=== PATIENT | female | born 1975 | race Caucasian/White ===

== ENCOUNTER 2020-11-02 11:36 | Outpatient (CLI) | payer SELFPAY ==
[2020-11-02 12:14] LABS: SARS-CoV-2 Ag Negative (Negative)
[2020-11-03 20:38] LABS: SARS-CoV-2 RNA PCR Negative
== END 2020-11-02 11:37 | disposition home or self-care (01) ==
LOC: CHSLAB 11:37
PROVIDERS: PCP Internal Medicine; Visit Provider Internal Medicine
DX: Z20.822 Contact with and (suspected) exposure to COVID-19 (principal)
CPT/HCPCS: 87426; C9803; U0003; U0005

== ENCOUNTER 2021-06-22 18:50 | Observation (INO) | payer BC, SELFPAY ==
--- NOTE | ~2021-06-22 | CT_ITS ---
EXAMINATION: CT abdomen pelvis w con DATE: 06/22/2021 20:24 INDICATION: Epigastric abdominal pain. Nausea. TECHNIQUE: Computed tomography (CT) of the abdomen and pelvis was performed with 100 mL Omnipaque 350 intravenous contrast. Automated exposure control and iterative reconstruction technique were employe d. The dose-length product was 215.90 mGy-cm. COMPARISON: None. FINDINGS: The visualized portions of the lung bases demonstrate mild atelectasis. No pleural effusion . The heart size is normal. No pericardial effusion. There is a 9 mm mass in left hepatic lobe that i s too small to characterize, most likely benign. There are cysts in the liver measuring up to 12 mm. The gallbladder, spleen, pancreas, adrenal glands are normal. There are cysts in the kidneys measurin g up to 9 mm on the right. There is a 17 mm hyperdense mass in the uterus, likely a fibroid. There ar e no dilated loops of bowel. The appendix is not visualized. There are no pathologically enlarged lym ph nodes. There is no free intraperitoneal fluid. The bones are unremarkable. IMPRESSION: 1. Uterine fibroid. Reviewed, dictated and finalized at location A. IMPRESSION: 1. Uterine fibroid.
--- NOTE | ~2021-06-22 | XR_ITS ---
EXAMINATION: XR chest 2V DATE: 06/22/2021 20:12 INDICATION: Shortness of breath. TECHNIQUE: Frontal and lateral views of the chest were obtained. COMPARISON: Chest 2 views 10/28/2017 FINDINGS: The chest demonstrates clear lungs without pneumonia, pleural effusion, or pneumothorax. Th e heart size is normal. IMPRESSION: 1. No acute cardiopulmonary disease. Reviewed, dictated and finalized at location A.
--- NOTE | ~2021-06-22 | US_ITS ---
EXAMINATION: US abdomen limited EXAM DATE: 06/23/2021 07:53 INDICATION: Abdominal pain. Abnormal CT scan. TECHNIQUE: Multiple grayscale and Doppler images of the abdomen right upper quadrant were obtained (b y a technologist who performed the scan) and subsequently reviewed. There is no prior study for eric ramos. FINDINGS: The pancreatic head and body are normal in appearance. The pancreatic tail is not visualized. The l iver has normal echogenicity and contour. There is a 1.3 cm left liver lobe cyst. There is no evide nce of intrahepatic biliary duct dilation. Portal venous flow was seen in the hepatopedal, normal di rection and has normal Doppler waveform. No right-sided hydronephrosis. Common bile duct measures 7 mm, which is normal. The gallbladder wall is normal in thickness, with ex pected amount of distention. No sonographic evidence of pericholecystic fluid. There is no cholelit hiases. Technologist performing exam reports patient did not demonstrate sonographic Reynoso's sign. Please note that this sign is less reliable in patients who have received pain medication. IMPRESSION: 1. Unremarkable gallbladder. Reviewed, dictated and finalized at location D.
[2021-06-22 19:07] VITALS: BP 116/77; PULSE 87; RESP 20; TEMP 36.8; O2SAT 96
--- NOTE | 2021-06-22 19:22 | ECG_ITS ---
Measurements Intervals Elliott Rate: 65 P: 48 MD: 153 QRS: -44 QRSD: 98 T: 43 QT: 421 QTc: 440 Interpretive Statements SINUS RHYTHM LEFT AXIS DEVIATION INCOMPLETE RIGHT BUNDLE BRANCH BLOCK BORDERLINE T WAVE ABNORMALITY- ANTERIOR LEADS BORDERLINE ECG Electronically Signed On 06-23-2021 7:45:28 CDT by Adi Turner D.O.
[2021-06-22] MEDS: SODIUM CHLORIDE 0.9% IV 1,000 ML 999 ML IV CONT (19:33)
[2021-06-22] MEDS: MORPHINE SULFATE (*CRX) 4 MG/ML INJ IV PUSH (19:33)
[2021-06-22] MEDS: ONDANSETRON INJ 4 MG/2 ML VIAL IV PUSH (19:33)
[2021-06-22 19:40] LABS: Basophils Absolute Auto 0.06 K/mm3 (0.00-0.10); Basophils Percent Auto 0.4 % (0.0-1.0); Eosinophils Absolute Auto 0.02 K/mm3 (0.02-0.50); Eosinophils Percent Auto 0.1 % (1.0-6.0); Hematocrit 44.1 % (35.0-49.0); Hemoglobin 15.3 g/dL (12.0-15.0); Immature Granulocyte Absolute 0.09 K/mm3 (0.00-0.00); Immature Granulocyte Percent A 0.6 % (0.0-0.0); Lymphocytes Absolute Auto 1.46 K/mm3 (1.10-4.50); Lymphocytes Percent Auto 9.4 % (18.0-42.0); Mean Corpuscular HGB Conc 34.7 g/dL (32.0-36.0); Mean Corpuscular Hemoglobin 31.7 pg (27.0-31.0); Mean Corpuscular Volume 91.5 fL (78.0-102.0); Mean Platelet Volume 9.1 fl (9.2-11.8); Monocytes Absolute Auto 0.88 K/mm3 (0.10-0.90); Monocytes Percent Auto 5.7 % (2.0-11.0); Neutrophils Absolute Auto 13.1 K/mm3 (1.7-7.2); Neutrophils Percent Auto 83.8 % (50.0-70.0); Platelet Count Result 326 K/mm3 (150-420); Red Blood Count 4.82 M/mm3 (4.20-5.40); Red Cell Distribution Width 11.5 % (11.6-14.4); White Blood Count 15.6 K/mm3 (4.8-10.8)
[2021-06-22 19:46] LABS: Pregnancy On Board Control Positive; Urine Pregnancy Test Negative
[2021-06-22 19:55] LABS: Partial Thromboplastin Time 26.4 SEC (23.90-30.70); Prothrombin Time 10.9 Seconds (9.50-12.10)
[2021-06-22 20:00] LABS: Alanine Aminotransferase 254 U/L (14-59); Albumin Level 3.7 g/dL (3.4-5.0); Alkaline Phosphatase 99 U/L (46-116); Anion Gap 12 mmol/L (8-16); Aspartate Amino Transferase 500 U/L (15-37); Bilirubin,Total 1.1 mg/dL (0.00-1.00); Blood Urea Nitrogen 18 mg/dL (7-18); Calcium 8.5 mg/dL (8.5-10.1); Carbon Dioxide 24 mmol/L (21-32); Chloride 104 mmol/L (98-108); Estimated CRCL calculation 72 ml/min; Estimated Glomerular Filt Rate > 60; Glucose 94 mg/dL (70-99); Lactic Acid Reflex 0.7 mmol/L (0.4-2.0); Lipase 169 U/L (73-393); Osmolality Calculated 291 mOsm/kg (285-295); Potassium 3.7 mmol/L (3.5-5.1); Sodium 140 mmol/L (136-145); Total Protein 6.6 g/dL (6.4-8.2)
[2021-06-22 20:05] LABS: CRP < 0.2 mg/dL (0.0-0.9); Troponin I < 4.0 ng/L (0.00-60.4)
--- NOTE | 2021-06-22 20:47 | ED.ABDPAIN ---
HPI - Abdominal Pain General Chief Complaint: Abdominal Pain Stated Complaint: abd pain, back pain Source: patient and family Mode of arrival: ambulatory History of Present Illness HPI narrative: this is a 46-year-old female that presents with some abdominal pain that she describes is a is an aching burning that radiates into her back in the epigastric area with tenderness in her epigastric area specially after she she eats, there is some nausea with no vomiting there is currently no fever or chills no shortness of breath no chest pain no chest pressure no fever or chills her vital signs are stable. The patient currently takes no medication. The patient had similar episode and went to the emergency department but did not follow through and left stating that she felt better at that time. Patient denies smoking or alcohol history. MD elicited complaint: abdominal pain Onset (ago): hour(s) Pain Consistency: intermittent Location: epigastric Severity: severe Pain scale (0-10): 8 Quality: aching Radiation: epigastric Related Data Home Medications Medication Instructions Recorded Confirmed No Home Medications 06/22/21 06/22/21 Allergies Allergy/AdvReac Type Severity Reaction Status Date / Time No Known Allergies Allergy Unverified 06/22/21 19:17 Review of Systems Review of Systems: All systems reviewed & are unremarkable except as noted in HPI and below PMFSH Past Medical History Medical History Abdominal pain Family History Family History Father Diabetes mellitus Hypertension Mother Family history of malignant neoplasm of cervix Other Family history of malignant neoplasm of breast Social History Social History Smoking status: Former smoker Smoking end date: 09/09/13 Alcohol intake: current Exam Const: General: no acute distress Orientation/consciousness: patient oriented x3 HENMT: Head: normal to inspection Eyes: Conjunctivae: conjunctivae normal Pupils: Equal, round and reactive pupils present Neck: Neck: normal visual inspection, no lymphadenopathy and no meningeal signs Chest: Chest palpation & inspection: normal inspection of the chest Resp: Effort & Inspection: normal respiratory effort Auscultation: clear to auscultation bilaterally Cardio: Rate: regular rate Rhythm: regular rhythm GI: GI Palp: Yes Soft to palpation and Yes Tenderness to palpation present (GI) ( epigastric area) Urinary Catheter: Urinary Catheter: patent and draining Back/Spine/Pelvis: Back: no CVA tenderness Skin: General skin exam: normal color Rashes: no rashes Neuro: General: patient oriented x3 and moves all extremities Extrem: General: normal to inspection Psych: Mental Status: mental status grossly normal Course Course Emergency Course: CT scan labs reviewed with patient IV fluids given, morphine 4mg IV along with Zofran given patient states that her abdominal pain has subsided. condition guarded Impression abdominal pain Disposition admitted to acute hospital start on Vital Signs Vital signs: Vital Signs Temperature 36.8 C 06/22/21 19:07 Pulse Rate 87 06/22/21 19:07 Respiratory Rate 20 06/22/21 19:07 Blood Pressure 116/77 06/22/21 19:07 Pulse Oximetry 96 06/22/21 19:07 Temperature 36.8 C 06/22/21 19:07 Pulse Rate 87 06/22/21 19:07 Respiratory Rate 20 06/22/21 19:07 Blood Pressure 116/77 06/22/21 19:07 Pulse Oximetry 96 06/22/21 19:07 MDM - Abdominal Pain Lab Data Result diagrams: 06/22/21 19:36 06/22/21 19:36 Labs: Lab Results 06/22/21 06/22/21 06/22/21 Range/Units 19:36 19:36 19:36 WBC 15.6 H (4.8-10.8) K/mm3 RBC 4.82 (4.20-5.40) M/mm3 Hgb 15.3 H (12.0-15.0) g/dL Hct 44.1 (35.0-49.0) % MCV 91.5 (78.0-102.0)
[2021-06-22 20:54] LABS: Add Urine Microscopic? YES; Appearance Urine Clear (Clear); Bilirubin Urine 1+ (Negative); Blood Urine Negative (Negative); Color Urine Yellow (Yellow); Glucose Urine UA Negative (Negative); Ketones Urine 3+ (Negative); Leukocyte Esterase Ur Trace (Negative); Nitrate Urine Negative (Negative); Protein Urine Negative (Negative)
[2021-06-22 20:59] VITALS: BP 119/67; PULSE 71; RESP 20; O2SAT 98
[2021-06-22 20:59] LABS: Bacteria Urine 1+ /hpf; Mucus Urine Rare /lpf; RBC Urine 0-2 /hpf (0-2); Squamous Epithelial Cell Urine Few /hpf (Few)
[2021-06-22 21:25] VITALS: BP 113/62; PULSE 67; RESP 18; TEMP 36.2; O2SAT 98
--- NOTE | 2021-06-22 21:28 | ADMGEN ---
This patient, Catina Marvin, was admitted to 2nd Floor Room 226-2. Patient/family oriented to hospital policies and general routines including ID bracelet, bed and alarms, visiting hours, pain management, procedures, bathroom and other care routines, personal items, smoking policy, room service/diet, and visiting hours. Information on how to activate the Rapid Response Team has been discussed. Patient/Family are encouraged to report perceived risks to care and to ask questions if they do not understand what they are told or what they should do.
[2021-06-22 21:32] VITALS: BMI 20.3
[2021-06-22] MEDS: SODIUM CHLORIDE 0.9% IV 1,000 ML 100 ML IV CONT (21:57)
[2021-06-22] MEDS: MORPHINE SULFATE (*CRX) 2 MG/ML INJ IV PUSH (22:16)
--- NOTE | 2021-06-22 22:45 | PC.NURSE ---
Patient reported pain was aching, gnawing pain in RUQ radiating to her back. Pain relieved with morphine.
--- NOTE | 2021-06-22 23:37 | PC.NURSE ---
Patient resting. Pain 0 on FLACC schedule.
[2021-06-23] VITALS: BP 94/54; PULSE 60; RESP 16; TEMP 36.2; O2SAT 94
[2021-06-23] MEDS: MORPHINE SULFATE (*CRX) 2 MG/ML INJ IV PUSH ×2 (05:25→09:20)
[2021-06-23 05:35] LABS: Basophils Absolute Auto 0.05 K/mm3 (0.00-0.10); Basophils Percent Auto 0.7 % (0.0-1.0); Eosinophils Absolute Auto 0.08 K/mm3 (0.02-0.50); Eosinophils Percent Auto 1.1 % (1.0-6.0); Hematocrit 40.6 % (35.0-49.0); Hemoglobin 13.6 g/dL (12.0-15.0); Immature Granulocyte Absolute 0.03 K/mm3 (0.00-0.00); Immature Granulocyte Percent A 0.4 % (0.0-0.0); Lymphocytes Absolute Auto 1.74 K/mm3 (1.10-4.50); Lymphocytes Percent Auto 24.8 % (18.0-42.0); Mean Corpuscular HGB Conc 33.5 g/dL (32.0-36.0); Mean Corpuscular Volume 92.5 fL (78.0-102.0); Mean Platelet Volume 9.6 fl (9.2-11.8); Monocytes Absolute Auto 0.63 K/mm3 (0.10-0.90); Neutrophils Absolute Auto 4.5 K/mm3 (1.7-7.2); Platelet Count Result 286 K/mm3 (150-420); Red Blood Count 4.39 M/mm3 (4.20-5.40); Red Cell Distribution Width 11.7 % (11.6-14.4)
[2021-06-23 05:53] LABS: Alanine Aminotransferase 305 U/L (14-59); Albumin Level 2.9 g/dL (3.4-5.0); Alkaline Phosphatase 87 U/L (46-116); Anion Gap 9 mmol/L (8-16); Aspartate Amino Transferase 282 U/L (15-37); Bilirubin,Total 0.5 mg/dL (0.00-1.00); Blood Urea Nitrogen 12 mg/dL (7-18); Calcium 7.8 mg/dL (8.5-10.1); Carbon Dioxide 25 mmol/L (21-32); Chloride 109 mmol/L (98-108); Estimated CRCL calculation 78 ml/min; Estimated Glomerular Filt Rate > 60; Glucose 77 mg/dL (70-99); Magnesium 2.1 mg/dL (1.8-2.4); Osmolality Calculated 294 mOsm/kg (285-295); Potassium 3.6 mmol/L (3.5-5.1); Sodium 143 mmol/L (136-145); Total Protein 5.5 g/dL (6.4-8.2)
[2021-06-23 07:50] LABS: GGT 135 U/L (5-55); Lipase 136 U/L (73-393)
[2021-06-23 08:00] VITALS: BP 102/67; PULSE 69; RESP 16; TEMP 36.7; O2SAT 95
[2021-06-23] MEDS: ENOXAPARIN 40 MG/0.4 ML SYRINGE SUB-Q (09:19)
[2021-06-23] MEDS: SODIUM CHLORIDE 0.9% IV 1,000 ML 100 ML IV CONT ×2 (09:19→20:09)
[2021-06-23] MEDS: PANTOPRAZOLE SODIUM IV 40 MG VIAL IV PUSH (09:20)
--- NOTE | 2021-06-23 10:10 | PC.NURSE ---
Pt resting comfortably no complaints at this time.
--- NOTE | 2021-06-23 11:00 | PC.NURSE ---
Pt sleeping at this time.
--- NOTE | 2021-06-23 11:58 | PC.NURSE ---
Pt has been up to the shower. States she had a burst of energy and cleaned up.
[2021-06-23 12:00] VITALS: BP 120/60; PULSE 72; RESP 14; TEMP 36.6; O2SAT 98
--- NOTE | 2021-06-23 12:38 | PM.IMHP ---
H&P: HPI History of Present Illness Date/Time: 06/23/21 12:38 Catina Marvin is a 46 your old female who comes to the hospital with increasing abdominal pain that started about a month ago. Pt states she has been taking 4 tabs of 200 mg tabs Ibuprofen 2 times a day and sometimes will substitute one dose with 2 tabs of OTC Aleve. She admits that she will take two 500 mg tabs of Tylenol maybe 1 time a week. She states she takes these medications for her neck pain. She also takes OTC Zegerid which is Omeprazole for her stomach pains which does help. Her pain is sharp, at times she feels bloated, has sensation her food will not finish going down. She admits to having vomited about 1 month ago and noticed the vomit was a dark color but does not recall bright red or coffee ground appearance. She also states that at times her stool will be a bit darker but not often. She admits she has taken Pepto-Bismol a few times but unable to correlate taking this with her darker stools. She denies bright red stools. She states her pain has gotten better since she has been here. She describes her neck pain as a neck headache . She denies any numbness or tingling in her hands or arms. She was able to tolerate oatmeal and toast this AM. Chief Complaint: Abdominal pain Review of Systems Review of Systems: All systems reviewed & are unremarkable except as noted in HPI and below PMFSH Past Medical History Medical History Abdominal pain Dysmenorrhea Irregular menses Menorrhagia with irregular cycle Preoperative exam for gynecologic surgery Family History Family History Father Diabetes mellitus Hypertension Mother Family history of malignant neoplasm of cervix Other Family history of malignant neoplasm of breast Social History Social History Smoking status: Former smoker Tobacco type: cigarettes Second hand tobacco smoke exposure: Yes Smoking end date: 09/09/13 Alcohol intake: current Drinks per week: 8 Substance use: never Spiritual care concerns: No Meds Home Medications and Allergies Home Medications Medication Instructions Recorded Confirmed Type No Home Medications 06/22/21 06/22/21 History Allergies Allergy/AdvReac Type Severity Reaction Status Date / Time No Known Allergies Allergy Unverified 06/22/21 19:17 Vital Signs Vital Signs - 24 hr 06/22/21 19:07 06/22/21 20:59 06/22/21 21:25 Temperature 98.3 F 97.2 F L Pulse Rate 87 71 67 Respiratory Rate 20 20 18 Blood Pressure 116/77 119/67 113/62 Pulse Oximetry 96 98 98 06/23/21 00:00 06/23/21 08:00 06/23/21 12:00 Temperature 97.2 F L 98.0 F 97.8 F Pulse Rate 60 69 72 Respiratory Rate 16 16 14 Blood Pressure 94/54 L 102/67 120/60 Pulse Oximetry 94 95 98 Exam Const: General: cooperative, healthy appearing, comfortable, no acute distress, well developed, alert, awake and Physically active Nutritional Appearance: thin Resp: Effort & Inspection: normal respiratory effort Auscultation: clear to auscultation bilaterally Cardio: Rate: regular rate Heart sounds: S1 normal heart sound present and S2 normal heart sound present GI: GI Palp: Yes Soft to palpation, Yes Tenderness to palpation present (GI) (Upper abdomen, mostly epigastric) and Yes No hepatosplenomegaly present Auscultation: Hypoactive bowel sounds present Back/Spine/Pelvis: Cervical Spine: normal cervical lordosis and cervical ROM normal Skin: General skin exam: normal color and dry skin Neuro: General: oriented to person, oriented to place and oriented to time Cranial nerves: Yes CN's II-XII intact bilaterally (grossly intact) Cognition (Neuro): normal cognition Speech: normal speech Motor exam (neuro): 5/5 motor strength present throughout Extrem: General: full ROM and no pedal edema Psych: Appearan
[2021-06-23] MEDS: BISACODYL 5 MG TABLET EC PO (13:15)
[2021-06-23] MEDS: SUMAtriptan SUCCINATE 6 MG/0.5 ML VIAL SUB-Q (14:22)
[2021-06-23] MEDS: ORPHENADRINE CITRATE 100 MG TABLET.ER PO (14:22)
--- NOTE | 2021-06-23 14:40 | PC.NURSE ---
Pt CO severe headache. RN made [employer] BAIT PICKER aware. Medications ordered and given to pt.
[2021-06-23 15:34] VITALS: BP 110/66; PULSE 62; RESP 20; TEMP 36.7; O2SAT 97
--- NOTE | 2021-06-23 15:43 | PC.NURSE ---
Round completed Resting abed side railes up to upper bed. V/S WNL. Respirations even/ nonlabored. Alert/oriented x4.
--- NOTE | 2021-06-23 17:53 | PC.NURSE ---
Completed round lying abed IV infusing without difficulty. Unable to collect stool for occult blood at this time;reminder to Catina to make staff aware upon defecation. Good verbal response no noted signs of distress, respirations even nonlabored.Call light in reach.
[2021-06-23 20:00] VITALS: BP 113/72; PULSE 60; RESP 18; TEMP 36.4; O2SAT 96
[2021-06-23] MEDS: ONDANSETRON INJ 4 MG/2 ML VIAL IV PUSH (22:20)
[2021-06-24] VITALS: BP 109/69; PULSE 55; RESP 18; TEMP 36; O2SAT 96
--- NOTE | 2021-06-24 03:58 | PC.NURSE ---
Patient complaining of headache and requesting pain med. Dr Zuniga notified with Tylenol order received.
[2021-06-24 04:00] VITALS: BP 116/76; PULSE 58; RESP 20; TEMP 36.3; O2SAT 95
[2021-06-24] MEDS: ACETAMINOPHEN 500 MG TABLET 1000 MG PO (04:00)
[2021-06-24 05:17] LABS: Hematocrit 39.1 % (35.0-49.0); Mean Corpuscular HGB Conc 33.2 g/dL (32.0-36.0); Mean Corpuscular Hemoglobin 31.4 pg (27.0-31.0); Mean Corpuscular Volume 94.4 fL (78.0-102.0); Mean Platelet Volume 9.7 fl (9.2-11.8); Platelet Count Result 255 K/mm3 (150-420); Red Blood Count 4.14 M/mm3 (4.20-5.40); Red Cell Distribution Width 11.7 % (11.6-14.4); White Blood Count 5.4 K/mm3 (4.8-10.8)
[2021-06-24 05:28] LABS: Anion Gap 6 mmol/L (8-16); Blood Urea Nitrogen 8 mg/dL (7-18); Carbon Dioxide 26 mmol/L (21-32); Chloride 107 mmol/L (98-108); Estimated CRCL calculation 75 ml/min; Estimated Glomerular Filt Rate > 60; Glucose 86 mg/dL (70-99); Osmolality Calculated 285 mOsm/kg (285-295); Potassium 3.7 mmol/L (3.5-5.1); Sodium 139 mmol/L (136-145)
[2021-06-24] MEDS: SODIUM CHLORIDE 0.9% IV 1,000 ML 100 ML IV CONT (06:12)
[2021-06-24 08:00] VITALS: BP 122/72; PULSE 75; RESP 16; TEMP 36.4; O2SAT 96
[2021-06-24] MEDS: PANTOPRAZOLE SODIUM IV 40 MG VIAL IV PUSH (09:18)
[2021-06-24] MEDS: ENOXAPARIN 40 MG/0.4 ML SYRINGE SUB-Q (09:18)
--- NOTE | 2021-06-24 10:49 | PM.DS ---
DS: Admitting Diagnosis Discharge Date 06/24/2021 <Benjamin Jang APN-Christian - Last Filed: 06/24/21 11:19> Admitting Diagnosis Gastritis, Nausea <ERIBERTO Mera - Last Filed: 06/24/21 11:19> DS: Discharge Diagnosis Discharge Diagnosis (1) Gastritis: Code(s): K29.70 - Gastritis, unspecified, without bleeding <ERIBERTO Mera - Last Filed: 06/24/21 11:19> Status: Acute <ERIBERTO Mera - Last Filed: 06/24/21 11:19> Assessment and Plan: DDx: PUD, Reflux, Cholecystitis, Pancreatitis, etc. Pain management with Morphine, Tums, and Zofran for nausea, advised Pt NOT to continue taking Ibuprofen every day as well as other NSAIDs. Pt was NPO then was able to tolerate breakfast of oatmeal and toast. Abd/Pel CT with Contrast: FINDINGS: The visualized portions of the lung bases demonstrate mild atelectasis. No pleural effusion. The heart size is normal. No pericardial effusion. There is a 9 mm mass in left hepatic lobe that is too small to characterize, most likely benign. There are cysts in the liver measuring up to 12 mm. The gallbladder, spleen, pancreas, adrenal glands are normal. There are cysts in the kidneys measuring up to 9 mm on the right. There is a 17 mm hyperdense mass in the uterus, likely a fibroid. There are no dilated loops of bowel. The appendix is not visualized. There are no pathologically enlarged lymph nodes. There is no free intraperitoneal fluid. The bones are unremarkable.IMPRESSION: 1. Uterine fibroid. Abd Ultrasound: FINDINGS: The pancreatic head and body are normal in appearance. The pancreatic tail is not visualized. The liver has normal echogenicity and contour. There is a 1.3 cm left liver lobe cyst. There is no evidence of intrahepatic biliary duct dilation. Portal venous flow was seen in the hepatopedal, normal direction and has normal Doppler waveform. No right-sided hydronephrosis. Common bile duct measures 7 mm, which is normal. The gallbladder wall is normal in thickness, with expected amount of distention. No sonographic evidence of pericholecystic fluid. There is no cholelithiases. Technologist performing exam reports patient did not demonstrate sonographic Reynoso's sign. Please note that this sign is less reliable in patients who have received pain medication. IMPRESSION: 1. Unremarkable gallbladder. Pt will need close follow up with her PCP and an EGD as an outpatient. Obtaining stool for blood 06/24/2021 Spoke with Pt about cutting out coffee, stopping NSAID use, starting on PO PPI <ERIBERTO Mera - Last Filed: 06/24/21 11:19> (2) Migraine headache without aura: Code(s): G43.009 - Migraine without aura, not intractable, without status migrainosus <ERIBERTO Mera - Last Filed: 06/24/21 11:19> Status: Acute <ERIBERTO Mera - Last Filed: 06/24/21 11:19> Assessment and Plan: Yesterday after closing my note Pt had complaints of DRAKE that started in her neck and then radiated to the front of her head and the back of her head. She was given Norflex and Sumatriptan which did take care of her headache, We discussed the over use of Ibuprofen which she has been taking 800 mg BID every day for 7 years and the fact that she drinks 2 moderate size cups of coffee a day (she is 110 lbs and 5'3 ), This AM her headache was returning and NUBIA Dudley gave her some coffee which helped her DRAKE. Will order a small amount of Fioricet but she will need to cut down her coffee intake a bit and most definitely her NSAID use <ERIBERTO Mera - Last Filed: 06/24/21 11:19> (3) Anxiety: Code(s): F41.9 - Anxiety disorder, unspecified <ERIBERTO Mera - Last Filed: 06/24/21 11:19> Status: Acute <ERIBERTO Mera - Last Filed: 06/24/21 11:19> Assessment and Plan: Pt states that she does get anxious regarding work. She admits she holds her stress in her shoulders and that this may be a cau
[2021-06-24 12:00] VITALS: BP 126/68; PULSE 66; RESP 20; TEMP 36.4; O2SAT 97
--- NOTE | 2021-06-27 11:52 | PC.NURSE ---
Pt states she received and understood her discharge instructions. Pt also states everything was great, I appreciated the hospitality .
== END 2021-06-24 13:00 | disposition home or self-care (01) ==
LOC: CHSED 18:53 → CHS2ND 21:03
PROVIDERS: Emergency Medicine; Nurse Practitioner Family; Admitting Provider Emergency Medicine; Emergency Provider Emergency Medicine; PCP Internal Medicine; Visit Provider Emergency Medicine
DX: K29.70 Gastritis, unspecified, without bleeding (principal); M54.2 Cervicalgia; N92.0 Excessive and frequent menstruation with regular cycle; F41.9 Anxiety disorder, unspecified; Z87.891 Personal history of nicotine dependence
CPT/HCPCS: 36415; 71046; 74177; 76705; 80048; 80053; 81001; 81025; 82977; 83605; 83690; 83735; 84484; 85025; 85027; 85610; 85730; 86140; 93005; 96361; 96365; 96372; 96374; 96375; 96376; 99285; A9270; C9113; G0378; J0696; J1650; J2270; J2405; J3030; J7030; Q9967

== ENCOUNTER 2021-07-13 00:40 | Day surgery (SDC) | payer BC, SELFPAY ==
[2021-06-29 14:14] VITALS: BMI 19.5
[2021-07-13 07:07] VITALS: BP 129/82; PULSE 67; RESP 14; TEMP 35.9; O2SAT 100; BMI 20.7
[2021-07-13] MEDS: LACTATED RINGERS 1,000 ML 150 ML IV CONT (07:20)
--- NOTE | 2021-07-13 07:36 | PM.IMHP ---
H&P: HPI History of Present Illness Date/Time: 07/13/21 07:36 Chief Complaint: Epigastric pain Narrative: this is a 46-year-old woman who presents with epigastric pain. She states that she previously went to the emergency department and was admitted for a couple days. This was at an outside facility. CT and ultrasound were negative. Her PCP suspects a possible ulcer other GI issue. She does get frequent heartburn. She also was taking a lot of ibuprofen for back pain. She has since been started on omeprazole and is trying to limit the amount of NSAIDs. Review of Systems Review of Systems: All systems reviewed & are unremarkable except as noted in HPI and below Constitutional: Constitutional: Denies chills, Denies fever(s), Denies headache(s) and Denies weight loss Eyes: Eyes: Denies change in vision ENT: Denies dizziness, Denies headache(s), Denies neck mass and Denies throat swelling Cardiovascular: Cardiovascular: Denies chest pain, Denies lightheadedness and Denies dyspnea Respiratory: Respiratory: Denies cough, Denies dyspnea and Denies wheezing Gastrointestinal: Gastrointestinal: Reports as per HPI, Reports abdominal pain, Denies change in bowel habits, Denies nausea and Denies vomiting Genitourinary: Genitourinary: Denies hematuria and Denies dysuria Musculoskeletal: Musculoskeletal: Reports as per HPI Integumentary/Breasts: Skin/Breast: Reports as per HPI Neurologic: Denies dizziness and Denies headache(s) Allergic/Immunologic: Allergic/Immunologic: Denies throat swelling and Denies wheezing PMFSH Past Medical History Medical History Abdominal pain Dysmenorrhea Irregular menses Menorrhagia with irregular cycle Preoperative exam for gynecologic surgery Family History Family History Father Diabetes mellitus Hypertension Mother Family history of malignant neoplasm of cervix Other Family history of malignant neoplasm of breast Social History Social History Years smoked: 2,012 Smoking status: Former smoker Tobacco type: cigarettes Second hand tobacco smoke exposure: Yes Smoking end date: 09/09/13 Alcohol intake: current Drinks per week: 4 Substance use: never Substance use type: does not use Living arrangements: with family Spiritual care concerns: No Meds Home Medications and Allergies Home Medications Medication Instructions Recorded Confirmed Type [id number]-[id number] 1 tablet PO Q8H PRN #14 tablet 06/24/21 07/13/21 Rx omeprazole 20 mg PO BID #30 cap 06/24/21 07/13/21 Rx cyclobenzaprine 10 mg PO DAILY 06/29/21 07/13/21 History Allergies Allergy/AdvReac Type Severity Reaction Status Date / Time No Known Allergies Allergy Verified 07/13/21 07:04 Vital Signs Vital Signs - 24 hr 07/13/21 07:07 Temperature 35.9 C L Pulse Rate 67 Respiratory Rate 14 Blood Pressure 129/82 Pulse Oximetry 100 Exam Const: General: no acute distress and alert Orientation/consciousness: patient oriented x3 HENMT: Head: normocephalic and atraumatic Ears: hearing grossly normal bilaterally General nose exam: Normal nares present Mouth: Yes Normal oral and palatal mucosa present Eyes: Periorbital: periorbital findings normal Sclera: sclerae normal EOM: EOMs intact bilaterally Neck: Neck: normal visual inspection, no lymphadenopathy and trachea midline Chest: Chest palpation & inspection: normal inspection of the chest Resp: Effort & Inspection: normal respiratory effort Auscultation: clear to auscultation bilaterally Cardio: Jugular venous distension: no JVD Rate: regular rate Rhythm: regular rhythm Heart sounds: S1 normal heart sound present and S2 normal heart sound present Peripheral pulses: Peripheral pulses 2+ throughout GI: Inspection: normal to inspection GI Palp:
--- NOTE | 2021-07-13 07:44 | P.PNAN_ITS ---
Anes - Initial Pre Proc Eval Procedure: Operation Date: 07/13/21 08:00 Proposed Procedures p Esophagogastroduodenoscopy - Benjamin Bone DO Date/Time: 07/13/21 07:44 Surgeon: Benjamin Bone DO Pre Op Diagnosis: epigastric pain, peptic ulcer Patient Data Age: 46 Gender: F Height: 1.6 m Weight: 53 kg Last Vital Signs Temp 35.9 C L 07/13/21 07:07 Pulse 67 07/13/21 07:07 Resp 14 07/13/21 07:07 BP 129/82 07/13/21 07:07 Pulse Ox 100 07/13/21 07:07 Allergies Allergy/AdvReac Type Severity Reaction Status Date / Time No Known Allergies Allergy Verified 07/13/21 07:04 Home Medications Medication Instructions Recorded Confirmed Type mgmwdtmihn-[id number]-[id number] 1 tablet PO Q8H PRN #14 tablet 06/24/21 07/13/21 Rx omeprazole 20 mg PO BID #30 cap 06/24/21 07/13/21 Rx cyclobenzaprine 10 mg PO DAILY 06/29/21 07/13/21 History Patient hx anesthesia problems: none Family hx anesthesia problems: none Results Review: All pre-operative results and documents have been reviewed as part of the pre-operative evaluation. FORMERLY [facility], [facility] Past Medical History Medical History Abdominal pain Dysmenorrhea Irregular menses Menorrhagia with irregular cycle Preoperative exam for gynecologic surgery Family History Family History Father Diabetes mellitus Hypertension Mother Family history of malignant neoplasm of cervix Other Family history of malignant neoplasm of breast Social History Social History Years smoked: 2,012 Smoking status: Former smoker Tobacco type: cigarettes Second hand tobacco smoke exposure: Yes Smoking end date: 09/09/13 Alcohol intake: current Drinks per week: 4 Substance use: never Substance use type: does not use Living arrangements: with family Spiritual care concerns: No Anes - Eval Final PreProcedure Day of Procedure 07/13/21 07:44 Patient weight: normal Heart: regular rate and rhythm Lungs: clear to auscultation and normal air movement Airway: Mallampati scale class II Neurological: alert and oriented Last oral intake: >/= 8 hours ASA classification: I Emergent: no Anesthetic plan: proceed Anesthesia type and monitoring: general GIVS Results Review: All pre-operative results and documents have been reviewed as part of the pre-operative evaluation. Informed Consent: The patient's anesthetic plan and its attendant risks and benefits were discussed with the patient/family/POA. Questions were solicited and answers provided to the satisfaction of the patient/family/POA.
[2021-07-13 08:38] VITALS: BP 117/80; PULSE 76; RESP 12; O2SAT 97
[2021-07-13 08:48] VITALS: BP 131/86; PULSE 73; RESP 15; O2SAT 100
[2021-07-13 08:58] VITALS: BP 141/85; PULSE 69; RESP 16; O2SAT 100
== END 2021-07-13 09:09 | disposition home or self-care (01) ==
PROVIDERS: PCP Internal Medicine; Visit Provider Surgery
PROC: 0DJ08ZZ Inspection of Upper Intestinal Tract, Via Natural or Artificial Opening Endoscopic (ICD-10-PCS; CPT 43235; principal; 2021-07-13 08:00)
DX: K25.3 Acute gastric ulcer without hemorrhage or perforation (principal); K44.9 Diaphragmatic hernia without obstruction or gangrene; Z87.891 Personal history of nicotine dependence
CPT/HCPCS: 43239; 87081; 88305; J2704; J7120

== ENCOUNTER 2021-09-04 14:34 | Outpatient (CLI) | payer BC, SELFPAY ==
[2021-09-04 15:33] LABS: SARS-CoV-2 RNA PCR Positive (Negative)
== END 2021-09-04 14:35 | disposition home or self-care (01) ==
LOC: CHSLAB 14:35
PROVIDERS: PCP Internal Medicine; Visit Provider Internal Medicine
DX: U07.1 COVID-19 (principal)
CPT/HCPCS: C9803; U0003; U0005

== ENCOUNTER 2024-05-25 16:24 | Outpatient (CLI) | payer BC, SELFPAY ==
[2024-05-25 16:48] LABS: Basophils Absolute Auto 0.06 K/mm3 (0.00-0.10); Basophils Percent Auto 0.5 % (0.0-1.0); Eosinophils Absolute Auto 0.11 K/mm3 (0.02-0.50); Eosinophils Percent Auto 0.9 % (1.0-6.0); Hematocrit 48.3 % (35.0-49.0); Hemoglobin 16.5 g/dL (12.0-15.0); Immature Granulocyte Absolute 0.05 K/mm3 (0.00-0.00); Immature Granulocyte Percent A 0.4 % (0.0-0.0); Lymphocytes Absolute Auto 2.14 K/mm3 (1.10-4.50); Lymphocytes Percent Auto 18.4 % (18.0-42.0); Mean Corpuscular HGB Conc 34.2 g/dL (32-36); Mean Corpuscular Hemoglobin 31.7 pg (27.0-31.0); Mean Corpuscular Volume 92.7 fL (78.0-102.0); Mean Platelet Volume 8.7 fl (9.2-11.8); Monocytes Absolute Auto 1.01 K/mm3 (0.10-0.90); Monocytes Percent Auto 8.7 % (2.0-11.0); Neutrophils Absolute Auto 8.25 K/mm3 (1.70-7.20); Neutrophils Percent Auto 71.1 % (50.0-70.0); Platelet Count Result 372 K/mm3 (150-420); Red Blood Count 5.21 M/mm3 (4.20-5.40); Red Cell Distribution Width 12.1 % (11.6-14.4); White Blood Count 11.6 K/mm3 (4.8-10.8)
[2024-05-25 17:52] LABS: Erythrocyte Sedimentation Rate 6 mm/hr (0-15)
[2024-05-25 17:57] LABS: Anion Gap 8 mmol/L (4-12); Blood Urea Nitrogen 15 mg/dL (7-18); Carbon Dioxide 29 mmol/L (21-32); Chloride 100 mmol/L (98-108); Estimated Glomerular Filt Rate > 60; Glucose 91 mg/dL (70-99); Osmolality Calculated 284 mOsm/kg (285-295); Potassium 4.8 mmol/L (3.5-5.1); Sodium 137 mmol/L (136-145)
[2024-05-25 18:23] LABS: CRP < 0.5 mg/dL (0.0-0.9)
== END 2024-05-25 16:25 | disposition home or self-care (01) ==
LOC: CHSLAB 16:36
PROVIDERS: PCP Internal Medicine; Visit Provider Internal Medicine
DX: N61.0 Mastitis without abscess (principal)
CPT/HCPCS: 36415; 80048; 85025; 85652; 86140

== ENCOUNTER 2024-05-28 10:03 | Outpatient (CLI) | payer BC, SELFPAY ==
--- NOTE | ~2024-05-28 | MMUS_ITS ---
EXAMINATION: MM diag sofia implant BI w carter, US breast LT limited HISTORY: Left breast pain, lump TECHNIQUE: 3-D tomosynthesis images of the bilateral breasts were performed and synthetic 2-D images were generated. CAD analysis was submitted and interpreted. High resolution limited left breast ultra sound was performed. COMPARISON: None BREAST PARENCHYMAL COMPOSITION:Dense: The breasts are extremely dense, which lowers the sensitivity o f mammography. FINDINGS: MAMMOGRAPHIC FINDINGS: Questionable obscured mass at the inner left breast, relatively low-density. No definite parenchymal abnormality the right breast seen. No suspicious calcifications. ULTRASOUND: At the 9:00 position left breast, 4 cm from the nipple, there is a 1.3 x 1.6 x 0.9 cm somewhat lobula joanne wider than tall mass. This lesion is solid with somewhat heterogeneous echotexture. IMPRESSION: 1.3 x 1.6 x 0.9 cm solid left breast mass, as above, indeterminate. Ultrasound-guided biopsy recomme nded to establish a histologic diagnosis. BI-RADS category 4, suspicious findings. Reviewed, dictated and finalized at location M. IMPRESSION: 1.3 x 1.6 x 0.9 cm solid left breast mass, as above, indeterminate. Ultrasound -guided biopsy recommended to establish a histologic diagnosis. BI-RADS category 4, suspicious findings.
== END 2024-05-28 10:04 | disposition home or self-care (01) ==
LOC: CHSIMG 10:06
PROVIDERS: PCP Internal Medicine; Visit Provider Internal Medicine
DX: N61.0 Mastitis without abscess (principal); R92.8 Other abnormal and inconclusive findings on diagnostic imaging of breast
CPT/HCPCS: 76642; 77062; 77066; G0279

== ENCOUNTER 2024-10-05 10:34 | Outpatient (CLI) | payer OTHER, SELFPAY ==
--- NOTE | ~2024-10-05 | XR_ITS ---
EXAMINATION: XR chest 2V 10/05/2024 11:01 INDICATION: Cough PROCEDURE: 2 view chest COMPARISON: 06/22/2021 FINDINGS: The lungs are clear. The cardiomediastinal silhouette is within normal limits. There are no pleural effusions. There is no pneumothorax suspected. There are breast implants. IMPRESSION: 1: NO ACUTE CARDIOPULMONARY DISEASE. Reviewed, dictated and finalized at location [facility]. [facility] [employer]
[2024-10-05 10:58] LABS: Hemoglobin 17.4 g/dL (12.0-15.0); Mean Corpuscular HGB Conc 33.5 g/dL (32-36); Mean Corpuscular Volume 92.5 fL (78.0-102.0); Mean Platelet Volume 8.8 fl (9.2-11.8); Platelet Count Result 281 K/mm3 (150-420); Red Blood Count 5.62 M/mm3 (4.20-5.40); Red Cell Distribution Width 11.9 % (11.6-14.4); White Blood Count 6.4 K/mm3 (4.8-10.8)
[2024-10-05 11:18] LABS: Band Neutrophils Percent 2 % (0-6); Eosinophils Absolute Manual 0.19 K/mm3 (0.02-0.50); Eosinophils Percent Manual 3 % (1-6); Lymphocytes Absolute Manual 1.08 K/mm3 (1.1-4.5); Lymphocytes Percent Manual 17 % (18-44); Monocytes Absolute Manual 0.83 K/mm3 (0.1-0.90); Monocytes Percent Manual 13 % (3-9); Neutrophils Absolute Manual 4.22 K/mm3 (1.7-7.2); Neutrophils Percent Manual 64 % (46-73); Total Cells Counted 100
[2024-10-05 11:19] LABS: Platelet Estimate Adequate (Adequate)
--- OUTSIDE RECORDS SUMMARY | 2024-10-05 11:46 | XMS_ITS | Clinical Summary ---
Author Organization [facility] [employer] Address [address] [place] [address] Care Team Providers Care Advertising Dispatch Clerk Name Role Phone Yaima Bailey MD Primary Care Provider [phone] Source Comments [facility] [employer],non-owned Affiliates and Associated Physician Practices is amultiple site organization consisting of ambulatory clinics and hospital sitesin [place], [place], [place] and [place]. This disclosure is being madepursuant to the Care Everywhere program and may not contain all information available regarding this patient. Last updated 18.[facility] [employer] Allergies No known active allergies Social History Tobacco Use Types Packs/Day Years Used Date Smoking Tobacco: Never Smokeless Tobacco: Never Alcohol Use Standard Drinks/Week Comments Yes 0 (1 standard drink = 0.6 oz pur e alcohol) socially Sex and Gender Information Value Date Recorded Sex Assigned at Not on file Gender Identity Not on file Sexual Orientation Not on file Last Filed Vital Signs Vital Sign Reading Time Taken Comments Blood Pressure 128/87 06/22/2021 4:20 PM CDT Pulse 80 06/22/2021 4:20 PM CDT Temperature 36.7 ??C (98.1 ??F) 06/22/2021 4:20 PM CD T Respiratory Rate 18 06/22/2021 4:20 PM CDT Oxygen Saturation 97% 06/22/2021 4:20 PM CDT Inhaled Oxygen Concentration - - Weight 49.9 kg (110 lb) 06/22/2021 4:20 PM CDT Height 160 cm (5' 3 ) 06/22/2021 4:20 PM CDT Body Mass Index 19.49 06/22/2021 4:20 PM CDT Plan of Treatment Health Maintenance Due Date Last Done Comments COLOGUARD (AGES 45-75) - COL ON CA SCREENING 1974 COLON MONITORING 1974 COLONOSCOPY - COLON CA SCREENING 1974 CT COLONOGRAPHY - COLON CA SCREENING 1974 Colorectal Cancer Screening 1974 FIT - COLON CA SCREENING 1974 FLEX SIG - COLON CA SCREENING 1974 LIPID TESTING 1974 MAMMOGRAM 1974 PAP SMEAR 1974 HIV SCREENING 1989 HEPATITIS C SCREENING 05/23/1992 DTAP/TDAP/TD VACCINES (1 - Tdap) 1993 HEPATITIS B VACCINE (1 of 3 - 19+ 3-dose series) 1993 COVID-19 VACCINE (1 - 2023-2 5 season) 2024 INFLUENZA VACCINE (#1) 2024 PNEUMOCOCCAL VACCINE 50+ (1 of 1 - PCV) 2024 ZOSTER VACCINE (1 of 2) 2024 DEPRESSION SCREENING 09/09/2024 HIB VACCINE Aged Out No longer eligi ble based on patient's age to complete this topic HPV VACCINE Aged Out No longer eligi ble based on patient's age to complete this topic MENINGOCOCCAL (Group B) VACCINE Aged Out No longer eligible based on patient's age to complete this topic MENINGOCOCCAL VACCINE Aged Out No maryjo justin eligible based on patient's age to complete this topic PNEUMOCOCCAL VACCINE Aged Out No long er eligible based on patient's age to complete this topic Care Teams Advertising Dispatch Clerk Relationship Specialty Start Date End Date Yaima Bailey MD [address] [place] [address] PCP - General 07/17/21
--- OUTSIDE RECORDS SUMMARY | 2024-10-05 11:46 | XMS_ITS | Patient Health Summary ---
Author Organization [facility] [employer] Address [address] [place] [address] Care Team Providers Care Toxicology Supervisor Name Role Phone Yaima Bailey MD Primary Care Provider [phone] Note from [facility],non-owned Affiliates and Associated Physician Practices is amultiple site organization consisting of ambulatory clinics and hospital sitesin [place], [place] and [place]. This disclosure is being madepursuant to the Care Everywhere program and may not contain all information available regarding this patient. Last updated 18.[facility] [employer] Allergies No known active allergies Social History [...] Mass Index 19.49 06/22/2021 4:20 PM CDT Care Teams Toxicology Supervisor Relationship Specialty Start Date End Date Yaima Bailey MD [address] [place] [address] [facility] - General 07/17/21
--- OUTSIDE RECORDS SUMMARY | 2024-10-05 11:46 | XMS_ITS | Referral Summary ---
Author Organization [facility] Address [address] [place] [address] Care Team Providers Care Denture Laboratory Technician Name Role Phone Yaima Bailey MD Primary Care Provider [phone] Allergies No known active allergies Medications No known medications Social History Tobacco Use Types Packs/Day Years Used Date Smoking Tobacco: Never Assessed Comments Unknown Sex and Gender Information Value Date Recorded Sex Assigned at Not on file Legal Sex Female 2:02 PM CDT Gender Identity Not on file Sexual Orientation Not on file Last Filed Vital Signs Vital Sign Reading Time Taken Comments Blood Pressure 127/79 06/17/2024 8:07 AM CDT Pulse 70 06/17/2024 8:07 AM CDT Temperature - - Respiratory Rate - - Oxygen Saturation - - Inhaled Oxygen Concentration - - Weight - - Height - - Body Mass Index - - Plan of Treatment Not on file Medical Devices Implanted Type Area Human Resources Benefits Manager Device Identifier Shelf Expiration Date Model / Serial / Lot [employer] Marker Breast Biopsy Barrel 1 Year Visibility Titanium Hydrogel Hydromark 15ga 1955-82-48-T1 - [id number] Implanted:Qty: 1 on 06/17/2024 at [facility] [employer] [id number] 4009-10-24 -T1 / / [id number] Insurance [employer] OOS Member Subscriber Plan / Payer (Ef fective 2020-Present) Name:Catina Marvin Relation to Subscriber:Self Name:Catina Marvin Payer ID:[id number] (NAIC) Type:School Admissions Address: [address] [place] [address] [place] [employer] OOS Member Subscriber Plan / Payer (Ef fective 2020-Present) Name:Shavonne Catina Relation to Subscriber:Self Name:Catina Marvin Payer ID:[id number] (NAIC) Type:School Admissions Address: [address] [place] [address] Care Teams Denture Laboratory Technician Relationship Specialty Start Date End Date Yaima Bailey MD [address] [place] [address] PCP - General Internal Medicine 05/28/24
--- OUTSIDE RECORDS SUMMARY | 2024-10-05 11:46 | XMS_ITS | Referral Summary ---
Author Organization [facility] [employer] Address [address] [place] [address] Care Team Providers Care Subsurface Augmentee Operator Name Role Phone Yaima Bailey MD Primary Care Provider [phone] Source Comments [facility] [employer],non-owned Affiliates and Associated Physician Practices is amultiple site organization consisting of ambulatory clinics and hospital sitesin [place], [place], [place] and [place]. This disclosure is being madepursuant to the Care Everywhere program and may not contain all information available regarding this patient. Last updated 18.[facility] Allergies No known active allergies Social History [...] 06/22/2021 4:20 PM CDT Plan of Treatment Not on file Care Teams Subsurface Augmentee Operator Relationship Specialty Start Date End Date Yaima Bailey MD [address] [place] [address] PCP - General 07/17/21
--- OUTSIDE RECORDS SUMMARY | 2024-10-05 11:46 | XMS_ITS | Clinical Summary ---
Author Organization [facility] Address [address] [place] [address] Care Team Providers Care Journeyman Machinist Name Role Phone Yaima Bailey MD Primary Care Provider [phone] Allergies No known active allergies Medications No known medications Surgical History Surgery Date Site/Laterality Comments BREAST BIOPSY 06/17/2024 Left Family History Medical History Relation Name Comments Cancer Maternal Grandmother Breast cancer Maternal Great-Grandmother Cervical cancer Mother Lung cancer Mother Relation Name Status Comments Maternal Grandmother Maternal Great-Grandmother Mother Social History Tobacco Use Types Packs/Day Years Used Date Smoking Tobacco: Never Assessed Comments Unknown Sex and Gender Information Value Date Recorded Sex Assigned at Not on file Legal Sex Female 2:02 PM CDT Gender Identity Not on file Sexual Orientation Not on file Obstetrics History Last Filed Vital Signs Vital Sign Reading Time Taken Comments Blood Pressure 127/79 06/17/2024 8:07 AM CDT Pulse 70 06/17/2024 8:07 AM CDT Temperature - - Respiratory Rate - - Oxygen Saturation - - Inhaled Oxygen Concentration - - Weight - - Height - - Body Mass Index - - Plan of Treatment Health Maintenance Due Date Last Done Comments Breast Cancer Screening-Mammogram 1974 Cervical Cancer Screening 1974 Colon Cancer Screening-Colonoscopy 1974 Depression Screening 1974 Hepatitis C Screening 1974 DTaP/Tdap/Td Vaccine (1 - Tdap) 1985 Hepatitis B Screening 1992 Regular Well Visit/Exam 18-64 1992 Influenza Vaccine (#1) 2024 Zoster Vaccine (1 of 2) 2024 Pneumococcal vaccine <65 Aged Out No longer eligible based on patient's age to complete this topic Medical Devices Implanted Type Area Rad Technologist Device Identifier Shelf Expiration Date Model / Serial / Lot [employer] Marker Breast Biopsy Barrel 1 Year Visibility Titanium Hydrogel Hydromark 15ga 1946-35-55-T1 - [id number] Implanted:Qty: 1 on 06/17/2024 at [facility] [employer] [id number] 4009-10-24 -T1 / / [id number] Insurance [employer] OOS [employer] Care Teams Journeyman Machinist Relationship Specialty Start Date End Date Yaima Bailey MD [address] [place] [address] PCP - General Internal Medicine 05/28/24
== END 2024-10-05 10:35 | disposition home or self-care (01) ==
LOC: CHSLAB 10:42
PROVIDERS: PCP Internal Medicine; Visit Provider Internal Medicine
DX: R05.9 Cough, unspecified (principal); R06.2 Wheezing
CPT/HCPCS: 36415; 71046; 85025

== ENCOUNTER 2025-01-01 09:01 | Outpatient (CLI) | payer OTHER, SELFPAY ==
--- NOTE | ~2025-01-01 | NM_ITS ---
EXAMINATION: NM hepatobiliary w pharm DATE: 01/01/2025 10:52 INDICATION: Right upper quadrant abdominal pain COMPARISON: None. TECHNIQUE: 6.1 mCi Tc-99m mebrofenin (Choletec) was administered intravenously. Scintigraphic images of the abdomen were obtained for one hour. 1.1 mcg sincalide (Kinevac) was administered by slow intr avenous infusion, and imaging was continued for 30 minutes. Gallbladder ejection fraction was calcula joanne by the technologist. FINDINGS: There is normal clearance of radiotracer from the blood pool. There is homogeneous tracer uptake by t he liver. Activity progresses to the gallbladder and bowel. The gallbladder ejection fraction (GBEF) is 59% (normal 10-90%, but most patient with gallbladder dysfunction have GBEF < 35% which does over lap with the normal range). IMPRESSION: 1. Normal hepatobiliary scan. Reviewed, dictated and finalized at location A.
--- OUTSIDE RECORDS SUMMARY | 2025-01-01 09:14 | XMS_ITS | Clinical Summary ---
Author Organization [facility] Address [address] [place] [address] Care Team Providers Care Radiographer Mammographer Name Role Phone Yaima Bailey MD Primary Care Provider [phone] Source Comments [facility] [employer],non-owned Affiliates and Associated Physician Practices is amultiple site organization consisting of ambulatory clinics and hospital sitesin [place], [place], [place] and [place]. This disclosure is being madepursuant to the Care Everywhere program and may not contain all information available regarding this patient. Last updated 18.[facility] [employer] Allergies No known active allergies Social History Tobacco Use Types Packs/Day Years Used Date Smoking Tobacco: Never Smokeless Tobacco: Never Alcohol Use Standard Drinks/Week Comments Yes 0 (1 standard drink = 0.6 oz pur e alcohol) socially Comments No Sex and Gender Information Value Date Recorded Sex Assigned at Not on file Legal Sex Female 4:08 AM CDT Gender Identity Not on file Sexual Orientation Not on file Last Filed Vital Signs Vital Sign Reading Time Taken Comments Blood Pressure 128/87 06/22/2021 4:20 PM CDT Pulse 80 06/22/2021 4:20 PM CDT Temperature 36.7 C (98.1 F) 06/22/2021 4:20 PM CDT Respiratory Rate 18 06/22/2021 4:20 PM CDT [...] SCREENING 1974 LIPID TESTING 1974 MAMMOGRAM 1974 HIV SCREENING 1989 HEPATITIS C SCREENING 05/23/1992 DTAP/TDAP/TD VACCINES (1 - Tdap) 1993 HEPATITIS B VACCINE (1 of 3 - 19+ 3-dose series) 1993 COVID-19 VACCINE (1 - 2023-2 5 season) 2024 PNEUMOCOCCAL VACCINE 50+ (1 of 1 - PCV) 2024 ZOSTER VACCINE (1 of 2) 2024 DEPRESSION SCREENING 09/09/2024 INFLUENZA VACCINE (Season Ended) 2025 HIB VACCINE Aged Out No longer eligi ble based on patient's age to complete this topic HPV VACCINE Aged Out No longer eligi ble based on patient's age to complete this topic MENINGOCOCCAL (Group B) VACC INE SHARED DECISION-MAKING Aged Out No longer eligibl e based on patient's age to complete this topic MENINGOCOCCAL GROUPS A/C/Y/W VACCINE Aged Out No longer eligible b ased on patient's age to complete this topic Care Teams Radiographer Mammographer Relationship Specialty Start Date End Date Yaima Bailey MD [address] [place] [address] PCP - General 07/17/21
--- OUTSIDE RECORDS SUMMARY | 2025-01-01 09:14 | XMS_ITS | Clinical Summary ---
Author Organization [facility] Address [address] [place] [address] Care Team Providers Care Rn Cardiology Name Role Phone Yaima Bailey MD Primary Care Provider [phone] Allergies No known active allergies Medications No [...] this topic Medical Devices Implanted Type Area Audiovisual Aids Technician Device Identifier Shelf Expiration Date Model / Serial / Lot [employer] Marker Breast Biopsy Barrel 1 Year Visibility Titanium Hydrogel Hydromark 15ga 4009-10-24-T1 - [id number] Implanted:Qty: 1 on 06/17/2024 at [facility] [employer] [id number] 4009-10-24 -T1 / / [id number] Insurance [employer] OOS [employer] Care Teams Rn Cardiology Relationship Specialty Start Date End Date Yaima Bailey MD [address] [place] [address] PCP - General Internal Medicine 05/28/24
--- OUTSIDE RECORDS SUMMARY | 2025-01-01 09:14 | XMS_ITS | Clinical Summary ---
Author Organization [facility] Address [address] [place] [address] Care Team Providers Care Print Washer Name Role Phone Yaima Bailey MD Primary Care Provider [phone] Allergies No known active allergies Medications ondansetron (ZOFRAN) 4 MG tablet Take 1 tablet (4 mg total) by mouth every 8 (eight) hours as needed for Nausea. 20 tablet 10/12/2024 Active sucralfate (CARAFATE) 1 G tablet Take 1 tablet (1 g total) by mouth 3 (three) times daily before meals for 7 days. 21 tablet 12/17/2024 Encounters Date Type Department Care Team Description 12/18/2024 4:30 PM CDT - 12/18/2024 11:59 PM CDT Hospital Encounter [facility] [address] [place] [address] Cedrick Roe MD Discharge Disposition: Home or Self Care (Routine Discharge) 12/17/2024 8:56 PM CDT - 12/17/2024 11:20 PM CDT Emergency [facility] [address] [place] [address] Cedrick Roe MD Abdominal Pain Discharge Disposition: Home or Self Care (Routine Discharge) 12/17/2024 Travel 10/12/2024 7:35 PM PERSONAL CARE ATTENDANT - 10/12/2024 10:30 PM [facility] Emergency [facility] [address] [place] [address] Danielle Flores DO Abdominal Pain; Flu Like Symptoms Discharge Disposition: Home or Self Care (Routine Discharge) 10/12/2024 Travel from Last 3 Months Social History Tobacco Use Types Packs/Day Years Used Date Smoking Tobacco: Never Smokeless Tobacco: Never Tobacco Cessation:Counseling Given: Not Answered Alcohol Use Standard Drinks/Week Comments Not Currently 0 (1 standard drink = 0.6 oz pur e alcohol) 2-3 X A WEEK Comments No Sex and Gender Information Value Date Recorded Sex Assigned at Female 10/12/2024 8:11 PM PERSONAL CARE ATTENDANT Legal Sex Female 10:11 PM PERSONAL CARE ATTENDANT Gender Identity Not on file Sexual Orientation Not on file Last Filed Vital Signs Vital Sign Reading Time Taken Comments Blood Pressure 154/110 12/17/2024 9:02 PM CDT Pulse 69 12/17/2024 9:02 PM CDT Temperature 35.7 C (96.3 F) 12/17/2024 9:02 PM CDT Respiratory Rate 18 12/17/2024 9:02 PM CDT Oxygen Saturation 100% 12/17/2024 9:02 PM CDT Inhaled Oxygen Concentration - - Weight 61.1 kg (134 lb 9.6 oz) 12/17/2024 9:02 P M CDT Height 160 cm (5' 3 ) 12/17/2024 9:02 PM CDT Body Mass Index 23.84 12/17/2024 9:02 PM CDT Plan of Treatment Health Maintenance Due Date Last Done Comments Cervical Cancer Screening Pa p Smear (Age 30 to 64) Every 3 Years 1974 Colorectal Cancer Screening Colonoscopy (10 Years) 1974 Annual Physical 1977 Hepatitis C 1992 DTaP, Tdap and Td Vaccines ( 1 - Tdap) 1993 Hepatitis B Vaccines (1 of 3 - 19+ 3-dose series) 1993 Cervical Cancer Screening Pa p with HPV Testing (Age 30 to 64) Every 5 Years 2004 Cervical Cancer Screening with HPV 2004 COVID-19 Vaccine ( - 2023-2 5 season) 2024 Pneumococcal Vaccine: 50+ Ye ars (1 of 1 - PCV) 2024 Zoster Vaccines (1 of 2) 2024 Mammogram Screening 06/12/2026 06/12/2024 Meningococcal B Vaccine Aged Out No l onger eligible based on patient's age to complete this topic Meningococcal Vaccine Aged Out No maryoj justin eligible based on patient's age to complete this topic RSV Immunizations Under 20 Months Aged Out No longer eligible based on patient's age to complete this topic Procedures Procedure Name Priority Date/Time Associated Diagnosis Comments US ABD LIMITED Routine 12/18/2024 4:53 PM CDT Abdominal pain CT ABD+PEL W CON STAT 12/17/2024 10:3 8 PM CDT LIPASE STAT 12/17/2024 9:20 PM CDT COMPREHENSIVE METABOLIC PANEL STAT 12/17/2024 9:20 PM CDT CBC W/DIFF AUTOMATED STAT 12/17/2024 9:[address] ABD+PEL W CON STAT 10/12/2024 9:06 PM PERSONAL CARE ATTENDANT INFLUENZA A & B STAT 10/12/2024 8:25 PM PERSONAL CARE ATTENDANT CORONAVIRUS (COVID-19) ANTIGEN STAT 10/12/2024 8:25 PM PERSONAL CARE ATTENDANT LIPASE STAT 10/12/2024 8:10 PM PERSONAL CARE ATTENDANT COMPREHENSIVE METABOLIC PANEL STAT 10/12/2024 8:10 PM PERSONAL CARE ATTENDANT CBC W/DIFF AUTOMATED STAT 10/12/2024 8:10 PM PERSONAL CARE ATTENDANT ECG 12-LEAD Routine 10/12/2024 7:50 PM PERSONAL CARE ATTENDANT from Last 3 Months Results * US ABD LIMITED (12/18/2024 4:53 PM CDT) Anatomical Region Laterality Modality Abdomen Ultrasound 12/20/2024 3:08 PM CDT Impressions 12/20/2024 3:12 PM CDT IMPRESSION: 1. Cholelithiasis with positive sonographic Reynoso sign but no other definite signs of cholecystitis. Follow-up with hepatobiliary scanning as deemed clinically appropriate. 2. Small hepatic cyst, concordant with CT. Referred By: CEDRICK ROE Interpreted By: Gordy Ellis MD, 12/20/2024 3:08 PM Narrative 12/20/2024 3:12 PM [address]T [address] [place] [address] Examination: Ultrasound of the liver and gallbladder. Exam time: 1635 hours. Clinical history: Right upper quadrant pain. Follow-up of abnormal CT scan. Comparison: CT of the abdomen and pelvis, 12/17/2024. Technique: Grayscale and color Doppler images including spectral analysis. Findings: There is dense acoustical shadowing in the region of the gallbladder fossa compatible with a gallbladder packed with gallstones. Wall thickness cannot be reliably assessed. There is no pericholecystic fluid. Sonographic Reynoso sign is reported as positive. There is no intra or extrahepatic biliary ductal dilatation. The common duct measures 4 mm. Sections through the liver demonstrate a 1.6 cm simple cyst in the left lobe, concordant with CT. This requires no further workup or surveillance. Hepatic echotexture is otherwise normal. Normal-appearing color flow and spectrum are documented in the portal vein on Doppler. Patency of the hepatic veins is also demonstrated. Limited sections through the pancreas and right kidney are unremarkable. No free fluid is seen. Procedure Note Gordy Ellis MD - 12/20/[address] [place] [address] Examination: Ultrasound of the liver and gallbladder. Exam time: 1635 hours. Clinical history: Right upper quadrant pain. Follow-up of abnormal CTscan. Comparison: CT of the abdomen and pelvis, 12/17/2024. Technique: Grayscale and color Doppler images including spectralanalysis. Findings: There is dense acoustical shadowing in the region of thegallbladder fossa compatible with a gallbladder packed with gallstones.Wall thickness cannot be reliably assessed. There is no pericholecysticfluid. Sonographic Reynoso sign is reported as positive. There is nointra or extrahepatic biliary ductal dilatation. The common duct measures4 mm. Sections through the liver demonstrate a 1.6 cm simple cyst in theleft lobe, concordant with CT. This requires no further workup orsurveillance. Hepatic echotexture is otherwise normal. Normal-appearingcolor flow and spectrum are documented in the portal vein on Doppler.Patency of the hepatic veins is also demonstrated. Limited sectionsthrough the pancreas and right kidney are unremarkable. No free fluid isseen. IMPRESSION: 1. Cholelithiasis with positive sonographic Reynoso sign but no otherdefinite signs of cholecystitis. Follow-up with hepatobiliary scanning asdeemed clinically appropriate. 2. Small hepatic cyst, concordant with CT. Referred By: CEDRICK ROE Interpreted By: Gordy Ellis MD, 12/20/2024 3:08 PM us Cedrick Roe MD ULTRASOUND Final Result * CT ABD+PEL W IV CON ONLY (12/17/2024 10:38 PM CDT) Only the most recent of2 resultswithin the time period is included. Anatomical Region Laterality Modality Abdomen Computed Tomogra phy 12/17/2024 10:4 6 PM CDT Impressions 12/17/2024 10:54 PM CDT IMPRESSION: 1. Patchy heterogeneous enhancement of the left kidney that is nonspecific but could reflect acute sinusitis in the appropriate clinical context. Recommend correlation with urinalysis. 2. Mild gallbladder wall thickening but no pericholecystic fluid or cholelithiasis is seen. If there is strong clinical concern for acute cholecystitis, gallbladder ultrasound or hepatobiliary scintigraphy could be considered. 3. Moderate volume of stool in the colon that is nonspecific but could reflect constipation in the appropriate clinical context. Referred By: Interpreted By: Cain Arnold DO, 12/17/2024 10:46 PM Narrative 12/17/2024 10:54 PM CDT [address] [place] [address] EXAMINATION: CT ABD+PEL W CON EXAM DATE: 12/17/2024 10:17 PM CLINICAL HISTORY: Pain. Mid abdominal and back pain. COMPARISON: CT abdomen and pelvis 10/12/2024. TECHNIQUE: Axial CT of the abdomen and pelvis was performed following intravenous administration of 87cc of Isovue-370. Coronal and sagittal reformatted reviewed. A radiation dose lowering technique was used for this procedure, which may include, but is not limited to, dose reduction technique, automated exposure control, the use of iterative reconstruction, ALARA (As Low As Reasonably Achievable) techniques, and Image Gently techniques FINDINGS: VISUALIZED LOWER THORAX: There is a tiny, 1 to 2 mm, right middle lobe pulmonary nodule that appears similar to the prior examination. The included lung bases are clear of active opacities. The incompletely visualized heart is not enlarged. HEPATOBILIARY: The liver is normal in size without gross contour abnormality. There is a focus of hypoattenuation in the medial left hepatic lobe that appears similar to the prior examination and likely reflects a cyst. There is again seen mild gallbladder wall thickening but no pericholecystic fluid is seen at this time. No cholelithiasis is seen. The common bile duct is normal in caliber. The pancreas is negative. SPLEEN: The spleen is normal in size. GENITOURINARY: There is no adrenal mass. There are small foci of hypoattenuation in both kidneys that are too small to technically characterize but which likely reflect tiny cysts and require no routine follow-up per consensus guidelines. There is patchy heterogeneous enhancement of the left kidney, that is nonspecific, but could reflect acute pyelonephritis in the appropriate clinical context. No evidence is seen to suggest renal or perinephric abscess. The urinary bladder is unremarkable The uterus is appropriate in size. There is a trace volume of fluid along the endometrial canal in the fundus.. AORTA: The abdominal aorta is normal in caliber. The proper hepatic artery originates directly from the abdominal aorta, which is a normal anatomic variant. LYMPH NODES: There is no retroperitoneal, pelvic, or mesenteric adenopathy. GASTROINTESTINAL: There is no gastric or small bowel dilatation. The appendix is nondilated. No evidence is seen to suggest bowel obstruction. There is a moderate volume of stool in the colon that is nonspecific but could reflect constipation in the appropriate clinical context. PERITONEUM: There is no free intraperitoneal fluid or air. MUSCULOSKELETAL: There is no destructive osseous lesion. Surgical changes of bilateral breast reconstruction are incompletely visualized. Procedure Note Cain Arnold DO - 12/17/2024 [facility] [address] [place] [address] EXAMINATION: CT ABD+PEL W CON EXAM DATE: 12/17/2024 10:17 PM CLINICAL HISTORY: Pain. Mid abdominal and back pain. COMPARISON: CT abdomen and pelvis 10/12/2024. TECHNIQUE: Axial CT of the abdomen and pelvis was performed following intravenousadministration of 87cc of Isovue-370. Coronal and sagittal reformattedreviewed. A radiation dose lowering technique was used for this procedure,which may include, but is not limited to, dose reduction technique,automated exposure control, the use of iterative reconstruction, ALARA (AsLow As Reasonably Achievable) techniques, and Image Gently techniques FINDINGS: VISUALIZED LOWER THORAX: There is a tiny, 1 to 2 mm, right middle lobe pulmonary nodule thatappears similar to the prior examination. The included lung bases areclear of active opacities. The incompletely visualized heart is notenlarged. HEPATOBILIARY: The liver is normal in size without gross contour abnormality. There is afocus of hypoattenuation in the medial left hepatic lobe that appearssimilar to the prior examination and likely reflects a cyst. There isagain seen mild gallbladder wall thickening but no pericholecystic fluidis seen at this time. No cholelithiasis is seen. The common bile duct isnormal in caliber. The pancreas is negative. SPLEEN: The spleen is normal in size. GENITOURINARY: There is no adrenal mass. There are small foci of hypoattenuation in bothkidneys that are too small to technically characterize but which likelyreflect tiny cysts and require no routine follow-up per consensusguidelines. There is patchy heterogeneous enhancement of the left kidney,that is nonspecific, but could reflect acute pyelonephritis in theappropriate clinical context. No evidence is seen to suggest renal orperinephric abscess. The urinary bladder is unremarkable The uterus isappropriate in size. There is a trace volume of fluid along theendometrial canal in the fundus.. AORTA: The abdominal aorta is normal in caliber. The proper hepatic arteryoriginates directly from the abdominal aorta, which is a normal anatomicvariant. LYMPH NODES: There is no retroperitoneal, pelvic, or mesenteric adenopathy. GASTROINTESTINAL: There is no gastric or small bowel dilatation. The appendix is nondilated.No evidence is seen to suggest bowel obstruction. There is a moderatevolume of stool in the colon that is nonspecific but could reflectconstipation in the appropriate clinical context. PERITONEUM: There is no free intraperitoneal fluid or air. MUSCULOSKELETAL: There is no destructive osseous lesion. Surgical changes of bilateralbreast reconstruction are incompletely visualized. IMPRESSION: 1. Patchy heterogeneous enhancement of the left kidney that isnonspecific but could reflect acute sinusitis in the appropriate clinicalcontext. Recommend correlation with urinalysis. 2. Mild gallbladder wall thickening but no pericholecystic fluid orcholelithiasis is seen. If there is strong clinical concern for acutecholecystitis, gallbladder ultrasound or hepatobiliary scintigraphy couldbe considered. 3. Moderate volume of stool in the colon that is nonspecific but couldreflect constipation in the appropriate clinical context. Referred By: Interpreted By: Cain Arnold DO, 12/17/2024 10:46 PM Cedrick Roe MD CT Final Result * (ABNORMAL) COMPREHENSIVE METABOLIC PANEL (12/17/2024 9:20 PM CDT) Only the most recent of2 resultswithin the time period is included. SODIUM S/P/B 139 136 - 145 MMOL/L 12/17/2024 9:[address] [facility] POTASSIUM S/P/B 3.5 3.5 - 5.1 MMOL/L 12/17/2024 9:[address] [facility] CHLORIDE S/P/B 103 98 - 107 MMOL/L 12/17/2024 9:[address] [facility] CO2 28.2 21.0 - 32.0 MMOL/L 12/17/2024 9:[address] [facility] GLUCOSE 83 70 - 99 MG/DL 12/17/2024 9:[address] [facility] Comment: FASTING GLUCOSE 100 TO 125 MG/DL IS CONSISTENT WITH IMPAIRED FASTING GLUCOSE. FASTING GLUCOSE >125 MG/DL IS CONSISTENT WITH DIABETES. RANDOM GLUCOSE >200 MG/DL WITH HYPERGLYCEMIC SYMPTOMS IS CONSISTENT WITH DIABETES. PER ADA GUIDELINES BUN 12 6 - 24 MG/DL 12/17/2024 9:[address] [facility] CREATININE S/P/B 0.77 0.55 - 1.02 MG/DL 12/17/2024 9:[address] [facility] CALCIUM S/P/B 9.0 8.4 - 10.5 MG/DL 12/17/2024 9:[address] [facility] BILIRUBIN TOTAL S/P/B 0.2 0.2 - 1.0 MG/DL 12/17/2024 9:[address] [facility] Comment: THIS ASSAY IS NOT RECOMMENDED FOR PATIENTS UNDERGOING TREATMENT WITH ELTROMBOPAG DUE TO THE POTENTIAL FOR FALSELY ELEVATED RESULTS. ALKALINE PHOSPHATASE S/P/B 80 39 - 100 U/L 12/17/2024 9:[address] [facility] AST 13(L) 15 - 37 U/L 12/17/2024 9:[address] [facility] ALT 24 14 - 59 U/L 12/17/2024 9:[address] [facility] TOTAL PROTEIN S/P/B 7.1 6.4 - 8.2 G/DL 12/17/2024 9:[address] [facility] ALBUMIN S/P/B 3.9 3.4 - 5.0 G/DL 12/17/2024 9:[address] [facility] ANION GAP 7.8 5.0 - 15.0 MMOL/L 12/17/2024 9:[address] [facility] OSMOLALITY (CALC) 287 MOSM/KG 025 9:[address] [facility] Comment:REFERENCE RANGE NOT ESTABLISHED GFR ESTIMATE >90 >89 ML/MIN/1. 73 M2 12/17/2024 9:[address] [facility] GFR NOTES GFR REFERENCE S: 12/17/2024 9:[address] [facility] Comment: THE ESTIMATED GFR IS CALCULATED USING THE 2020 CKD-EPI EQUATION. THE FOLLOWING CATEGORIES FOR GRADING RENAL FUNCTION ARE RECOMMENDED BY THE INTERNATIONAL SOCIETY OF NEPHROLOGY (KDIGO 2012 CLINICAL PRACTICE GUIDELINE). G1,NORMAL OR HIGH: >89 ml/min/1.73 m2 G2,MILDLY DECREASED: 60-89 ml/min/1.73 m2 G3A,MILDLY TO MODERATELY DECREASED: 45-59 ml/min/1.73 m2 G3B,MODERATELY TO SEVERELY DECREASED: 30-44 ml/min/1.73 m2 G4,SEVERELY DECREASED: 15-29 ml/min/1.73 m2 G5,KIDNEY FAILURE: <15 ml/min/1.73 m2 12/17/2024 9:20 PM CDT us Cedrick Roe MD LABORATORY Final Result [facility] [address] [place] [address], * (ABNORMAL) CBC W/DIFF AUTOMATED (12/17/2024 9:20 PM CDT) Only the most recent of2 resultswithin the time period is included. WBC 10.26 4.00 - 10.80 x10'3/uL 12/17/2024 9:[address] [facility] RBC 5.32 4.10 - 5.40 x10'6/uL 12/17/2024 9:[address] [facility] HGB 16.5(H) 12.0 - 16.0 G/DL 12/17/2024 9:[address] [facility] HCT 49.3(H) 36.0 - 47.0 % 12/17/2024 9:[address] [facility] MCV 92.7 78.0 - 100.0 FL 12/17/2024 9:[address] [facility] MCH 31.0 27.0 - 31.0 PG 12/17/2024 9:[address] [facility] MCHC 33.5 33.0 - 36.0 G/DL 12/17/2024 9:[address] [facility] RDW 12.8 11.5 - 14.5 % 12/17/2024 9:[address] [facility] PLT 373(H) 150 - 350 x10'3/uL 12/17/2024 9:[address] [facility] MPV 8.8 7.4 - 10.4 FL 12/17/2024 9:[address] [facility] CBC COMMENT NORMAL REFERENCE RANGE NOT ESTABLISHED FOR THE PROPORTIONAL LEUKOCYTE DIFFERENTIAL. 12/17/2024 9:[address] [facility] NEUTROPHILS % 61.0 % 12/17/2024 9:[address] [facility] LYMPHOCYTES % 26.8 % 12/17/2024 9:[address] [facility] MONOCYTES % 8.1 % 12/17/2024 9:[address] [facility] EOSINOPHILS % 3.0 % 12/17/2024 9:[address] [facility] BASOPHILS % 0.8 % 12/17/2024 9:[address] [facility] IMMATURE GRANS % 0.3 % 12/18/19 9:[address] [facility] NRBC % 0.0 % 12/17/2024 9:[address] [facility] ABS. NEUTROPHILS 6.26 1.60 - 8.30 x10'3/uL 12/17/2024 9:[address] [facility] ABS. LYMPHOCYTES 2.75 0.80 - 4.70 x10'3/uL 12/17/2024 9:[address] [facility] ABS. MONOCYTES 0.83 0.00 - 1.50 x10'3/uL 12/17/2024 9:[address] [facility] ABS. EOSINOPHILS 0.31 0.00 - 0.40 x10'3/uL 12/17/2024 9:[address] [facility] ABS. BASOPHILS 0.08 0.00 - 0.20 x10'3/uL 12/17/2024 9:[address] [facility] ABS. IMMATURE GRANULOCYTES 0.03 0.00 - 0.03 x10'3/uL 12/17/2024 9:[address] [facility] ABS. NUCLEATED RBC'S 0.00 0.00 - 0.01 x10'3/uL 12/17/2024 9:[address] [facility] 12/17/2024 9:20 PM CDT us Cedrick Roe MD LABORATORY Final Result Performing Organization Address City/[facility]/ZIP Co de Phone Number [facility] [address] [place] [address], * (ABNORMAL) LIPASE (12/17/2024 9:20 PM CDT) Only the most recent of2 resultswithin the time period is included. LIPASE 91(H) 16 - 77 UNITS/L 12/17/2024 9:[address] [facility] 12/17/2024 9:20 PM CDT us Cedrick Roe MD LABORATORY Final Result Performing Organization Address City/[facility]/ZIP Co de Phone Number [facility] [address] [place] [id number], * CORONAVIRUS (COVID-19) ANTIGEN (10/12/2024 8:25 PM PERSONAL CARE ATTENDANT) CORONAVIRUS ANTIGEN IA NEGATIVE NEGATIVE 10/12/2024 8:54 PM PERSONAL CARE ATTENDANT [facility] Comment: NEGATIVE RESULTS DO NOT RULE OUT SARS-COV-2 INFECTION AND SHOULD NOT BE USED THE SOLE BASIS FOR TREATMENT OR PATIENT MANAGEMENT DECISIONS, INCLUDING INFECTION CONTROL DECISIONS. NEGATIVE RESULTS SHOULD BE CONSIDERED IN THE CONTEXT OF A PATIENT'S RECENT EXPOSURES, HISTORY AND THE PRESENCE OF CLINICAL SIGNS AND SYMPTOMS CONSISTENT WITH COVID 19. THIS TEST HAS BEEN AUTHORIZED BY THE FDA UNDER AN EMERGENCY USE AUTHORIZATION (EUA) FOR USE BY AUTHORIZED LABORATORIES. SPECIMEN TYPE NASAL 10/12/2024 8:24 PM PERSON[address] CARE ATT[address]ANT [facility] NASAL NASAL STRUCTURE / Unknown 10/12/2024 8:25 PM PERSONAL CARE ATTENDANT us Danielle Flores DO MICROBIOLOGY - GENERAL ORDERAB LES Final Result Performing Organization Address [facility]/[place] Co de Phone Number [address] [address], * INFLUENZA A & B (10/12/2024 8:25 PM PERSONAL CARE ATTENDANT) SPECIMEN TYPE (INFLUENZA) NASAL 10/12/2024 8:24 [address] ATT[address]ANT [facility] INFLUENZA A NEGATIVE NEGATIVE 10/12/2024 8:54 PM PERSONAL CARE ATTENDANT [facility] INFLUENZA B NEGATIVE NEGATIVE 10/12/2024 8:54 PM PERSONAL CARE ATTENDANT [facility] Comment: A NEGATIVE RESULT DOES NOT EXCLUDE INFLUENZA VIRUS INFECTION. IF INFLUENZA IS CIRCULATING IN YOUR COMMUNITY, A DIAGNOSIS OF INFLUENZA SHOULD BE CONSIDERED BASED ON A PATIENT'S CLINICAL PRESENTATION AND EMPIRIC ANTIVIRAL TREATMENT SHOULD BE CONSIDERED IF INDICATED. 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1975 Requested By: DANIELLE FLORES Order Number: [id number] Reading MD: Fuad Figueroa Measurements Intervals Amasa Rate: 64 P: 45 VA: 148 QRS: -55 QRSD: 113 T: 38 QT: 409 QTc: 423 Interpretive Statements SINUS RHYTHM INCOMPLETE RIGHT BUNDLE BRANCH BLOCK LEFT ANTERIOR FASCICULAR BLOCK ONAL CARE ATTENDANT Danielle Flores DO ECG ORDERABLES Final Result [facility] from Last 3 Months Insurance [facility] Care Teams Print Washer Relationship Specialty Start Date End Date Yaima Bailey MD [address] [place] [address] PCP - General INTERNAL MEDICINE 10/12/24
--- OUTSIDE RECORDS SUMMARY | 2025-01-01 09:14 | XMS_ITS | Referral Summary ---
Author Organization [facility] Address [address] [place] [address] Care Team Providers Care [employer] Reader Name Role Phone Yaima Bailey MD Primary Care Provider [phone] Allergies No known active allergies Medications No [...] on file Medical Devices Implanted Type Area Flower Shop Laborer/Designer Device Identifier Shelf Expiration Date Model / Serial / Lot [employer] Marker Breast Biopsy Barrel 1 Year Visibility Titanium Hydrogel Hydromark 15ga 4009-10-24-T1 - [id number] Implanted:Qty: 1 on 06/17/2024 at [facility] [employer] [id number] -T1 / / [id number] Insurance Clear [employer] [place] [employer] O[employer] Care Teams [employer] Reader Relationship Specialty Start Date End Date Yaima Bailey MD [address] [place] [address] PCP - General Internal Medicine 05/28/24
== END 2025-01-01 09:02 | disposition home or self-care (01) ==
LOC: CHSIMG 09:04
PROVIDERS: PCP Internal Medicine; Visit Provider Internal Medicine
DX: R10.11 Right upper quadrant pain (principal)
CPT/HCPCS: 78227; A9537; J2805

== ENCOUNTER 2025-01-11 17:08 | Outpatient (CLI) | payer OTHER, SELFPAY ==
--- OUTSIDE RECORDS SUMMARY | 2025-01-11 17:11 | XMS_ITS | Referral Summary ---
Author Organization [facility] Address [address] [place] [address] Care Team Providers Care Certified Drug Counselor Name Role Phone Yaima Bailey MD Primary Care Provider [phone] Allergies No known active allergies Medications No [...] on file Medical Devices Implanted Type Area Brush Polisher Device Identifier Shelf Expiration Date Model / Serial / Lot [employer] Marker Breast Biopsy Barrel 1 Year Visibility Titanium Hydrogel Hydromark 15ga 4009-10-24-T1 - [id number] Implanted:Qty: 1 on 06/17/2024 at [facility] [employer] [id number] -T1 / / [id number] Insurance [employer] [place] [employer] Care Teams Certified Drug Counselor Relationship Specialty Start Date End Date Yaima Bailey MD [address] [place] [address] PCP - General Internal Medicine 05/28/24
--- OUTSIDE RECORDS SUMMARY | 2025-01-11 17:11 | XMS_ITS | Clinical Summary ---
Author Organization [facility] Address [address] [address] Care Team Providers Care Site Director Name Role Phone Yaima Bailey MD Primary Care Provider [phone] Source Comments [facility] [employer],non-owned Affiliates and Associated Physician Practices is amultiple site organization consisting of ambulatory clinics and hospital sitesin [place], [place], [place] and [place]. This disclosure is being madepursuant to the Care Everywhere program and may not contain all information available regarding this patient. Last updated 18.[facility] Allergies No known active allergies Social History [...] age to complete this topic Care Teams Site Director Relationship Specialty Start Date End Date Yaima Bailey MD [address] [place] [address] PCP - General 07/17/21
--- OUTSIDE RECORDS SUMMARY | 2025-01-11 17:11 | XMS_ITS | Clinical Summary ---
Author Organization [facility] Address [address] [place] [address] Care Team Providers Care License Issuer Name Role Phone Yaima Bailey MD Primary Care Provider [phone] Allergies No known active allergies Medications ondansetron [...] - 12/18/2024 11:59 PM CDT Hospital Encounter [facility] [address] [place] [address] Cedrick Roe MD Discharge Disposition: Home or Self Care (Routine Discharge) 12/17/2024 8:56 PM CDT - 12/17/2024 11:20 PM CDT Emergency [facility] [address] [place] [address] Cedrick Roe MD Abdominal Pain Discharge Disposition: Home or Self Care (Routine Discharge) 12/17/2024 Travel from Last 3 Months Social History Tobacco Use Types Packs/Day Years Used Date Smoking Tobacco: Never Smokeless Tobacco: Never Tobacco Cessation:Counseling Given: Not Answered Alcohol Use Standard Drinks/Week Comments Not Currently 0 (1 standard drink = 0.6 oz pur e alcohol) 2-3 X A WEEK Comments No Sex and Gender Information Value Date Recorded Sex Assigned at Female 10/12/2024 8:11 PM SWATCH CHECKER Legal Sex Female 10:11 PM SWATCH CHECKER Gender Identity Not on file Sexual Orientation [...] this topic Meningococcal Vaccine Aged Out No maryjo justin eligible based [...] W/DIFF AUTOMATED STAT 12/17/2024 9:20 PM CDT from Last 3 Months Results * US [...] 3:08 PM Narrative 12/20/2024 3:12 PM CDT [address] [place] [address] Examination: Ultrasound of the liver and gallbladder. [...] Procedure Note Gordy Ellis MD - 12/20/2024 [facility] [address] [place] [address] Examination: Ultrasound of the liver and gallbladder. [...] IV CON ONLY (12/17/2024 10:38 PM CDT) Anatomical Region Laterality Modality Abdomen Computed Tomogra [...] 10:46 PM Narrative 12/17/2024 10:54 PM CDT [address] [place] [address] EXAMINATION: CT ABD+PEL W CON EXAM DATE: [...] Procedure Note Cain Arnold DO - 12/17/[address] [place] [address] EXAMINATION: CT ABD+PEL W CON EXAM DATE: [...] By: Cain Arnold DO, 12/17/2024 10:46 PM Cedrickhansel Roe MD CT Final Result * (ABNORMAL) COMPREHENSIVE METABOLIC PANEL (12/17/2024 9:20 PM CDT) SODIUM S/P/B 139 136 - 145 MMOL/L 12/17/2024 9:45 PM CDT [facility] POTASSIUM S/P/B 3.5 3.5 - 5.1 MMOL/L 12/17/2024 9:45 PM CDT [facility] CHLORIDE S/P/B 103 98 - 107 MMOL/L 12/17/2024 9:45 PM CDT [facility] CO2 28.2 21.0 - 32.0 MMOL/L 12/17/2024 9:45 PM CDT [facility] GLUCOSE 83 70 - 99 MG/DL 12/17/2024 9:45 PM CDT [facility] Comment: FASTING GLUCOSE 100 TO 125 MG/DL IS CONSISTENT WITH IMPAIRED FASTING GLUCOSE. FASTING GLUCOSE >125 MG/DL IS CONSISTENT WITH DIABETES. RANDOM GLUCOSE >200 MG/DL WITH HYPERGLYCEMIC SYMPTOMS IS CONSISTENT WITH DIABETES. PER ADA GUIDELINES BUN 12 6 - 24 MG/DL 12/17/2024 9:45 PM CDT [facility] CREATININE S/P/B 0.77 0.55 - 1.02 MG/DL 12/17/2024 9:45 PM CDT [facility] CALCIUM S/P/B 9.0 8.4 - 10.5 MG/DL 12/17/2024 9:45 PM CDT [facility] BILIRUBIN TOTAL S/P/B 0.2 0.2 - 1.0 MG/DL 12/17/2024 9:45 PM CDT [facility] Comment: THIS ASSAY IS NOT RECOMMENDED FOR PATIENTS UNDERGOING TREATMENT WITH ELTROMBOPAG DUE TO THE POTENTIAL FOR FALSELY ELEVATED RESULTS. ALKALINE PHOSPHATASE S/P/B 80 39 - 100 U/L 12/17/2024 9:45 PM CDT [facility] AST 13(L) 15 - 37 U/L 12/17/2024 9:45 PM CDT [facility] ALT 24 14 - 59 U/L 12/17/2024 9:45 PM CDT [facility] TOTAL PROTEIN S/P/B 7.1 6.4 - 8.2 G/DL 12/17/2024 9:45 PM CDT [facility] ALBUMIN S/P/B 3.9 3.4 - 5.0 G/DL 12/17/2024 9:45 PM CDT [facility] ANION GAP 7.8 5.0 - 15.0 MMOL/L 12/17/2024 9:45 PM CDT [facility] OSMOLALITY (CALC) 287 MOSM/KG 025 9:45 PM CDT [facility] Comment:REFERENCE RANGE NOT ESTABLISHED GFR ESTIMATE >90 >89 ML/MIN/1. 73 M2 12/17/2024 9:45 PM CDT [facility] GFR NOTES GFR REFERENCE S: 12/17/2024 9:45 PM CDT [facility] Comment: THE ESTIMATED GFR IS [...] us Cedrick Roe MD LABORATORY Final Result [facility] [address] [place] [address], * (ABNORMAL) CBC W/DIFF AUTOMATED (12/17/2024 9:20 PM CDT) WBC 10.26 4.00 - 10.80 x10'3/uL 12/17/2024 9:29 PM CDT [facility] RBC 5.32 4.10 - 5.40 x10'6/uL 12/17/2024 9:29 PM CDT [facility] HGB 16.5(H) 12.0 - 16.0 G/DL 12/17/2024 9:29 PM CDT [facility] HCT 49.3(H) 36.0 - 47.0 % 12/17/2024 9:29 PM CDT [facility] MCV 92.7 78.0 - 100.0 FL 12/17/2024 9:29 PM CDT [facility] MCH 31.0 27.0 - 31.0 PG 12/17/2024 9:29 PM CDT [facility] MCHC 33.5 33.0 - 36.0 G/DL 12/17/2024 9:29 PM CDT [facility] RDW 12.8 11.5 - 14.5 % 12/17/2024 9:29 PM CDT [facility] PLT 373(H) 150 - 350 x10'3/uL 12/17/2024 9:29 PM CDT [facility] MPV 8.8 7.4 - 10.4 FL 12/17/2024 9:29 PM CDT [facility] CBC COMMENT NORMAL REFERENCE RANGE NOT ESTABLISHED FOR THE PROPORTIONAL LEUKOCYTE DIFFERENTIAL. 12/17/2024 9:29 PM CDT [facility] NEUTROPHILS % 61.0 % 12/17/2024 9:29 PM CDT [facility] LYMPHOCYTES % 26.8 % 12/17/2024 9:29 PM CDT [facility] MONOCYTES % 8.1 % 12/17/2024 9:29 PM CDT [facility] EOSINOPHILS % 3.0 % 12/17/2024 9:29 PM CDT [facility] BASOPHILS % 0.8 % 12/17/2024 9:29 PM CDT [facility] IMMATURE GRANS % 0.3 % 12/18/19 9:29 PM CDT [facility] NRBC % 0.0 % 12/17/2024 9:29 PM CDT [facility] ABS. NEUTROPHILS 6.26 1.60 - 8.30 x10'3/uL 12/17/2024 9:29 PM CDT [facility] ABS. LYMPHOCYTES 2.75 0.80 - 4.70 x10'3/uL 12/17/2024 9:29 PM CDT [facility] ABS. MONOCYTES 0.83 0.00 - 1.50 x10'3/uL 12/17/2024 9:29 PM CDT [facility] ABS. EOSINOPHILS 0.31 0.00 - 0.40 x10'3/uL 12/17/2024 9:29 PM CDT [facility] ABS. BASOPHILS 0.08 0.00 - 0.20 x10'3/uL 12/17/2024 9:29 PM CDT [facility] ABS. IMMATURE GRANULOCYTES 0.03 0.00 - 0.03 x10'3/uL 12/17/2024 9:29 PM CDT [facility] ABS. NUCLEATED RBC'S 0.00 0.00 - 0.01 x10'3/uL 12/17/2024 9:29 PM CDT [facility] 12/17/2024 9:2 0 PM CDT us Cedrick Roe MD LABORATORY Final Result [facility] [place] [address], * (ABNORMAL) LIPASE (12/17/2024 9:20 PM CDT) LIPASE 91(H) 16 - 77 UNITS/L 12/17/2024 9:45 PM CDT [facility] 12/17/2024 9:20 PM CDT us Cedrick Roe MD LABORATORY Final Result [facility] [address] [place] [address], from Last 3 Months Insurance [facility] Care Teams License Issuer Relationship Specialty Start Date End Date Yaima Bailey MD [address] [place] [address] PCP - General INTERNAL MEDICINE 10/12/24
--- OUTSIDE RECORDS SUMMARY | 2025-01-11 17:11 | XMS_ITS | Clinical Summary ---
Author Organization [facility] Address [address] [place] [address] Care Team Providers Care Biometric Screener Name Role Phone Yaima Bailey MD Primary Care Provider [phone] Allergies No known active allergies Medications No [...] this topic Medical Devices Implanted Type Area Director Of Content And Programming Device Identifier Shelf Expiration Date Model / Serial / Lot [employer] Marker Breast Biopsy Barrel 1 Year Visibility Titanium Hydrogel Hydromark 15ga 4009-10-24-T1 - [id number] Implanted:Qty: 1 on 06/17/2024 at [facility] [employer] [id number] -T1 / / [id number] Insurance [employer] OOS [employer] Care Teams Biometric Screener Relationship Specialty Start Date End Date Yaima Bailey MD [address] [place] [address] PCP - General Internal Medicine 05/28/24
[2025-01-11 17:49] LABS: Amylase 68 U/L (25-115); Lipase 60 U/L (16-77)
== END 2025-01-11 17:09 | disposition home or self-care (01) ==
PROVIDERS: PCP Internal Medicine; Visit Provider Internal Medicine
DX: R10.13 Epigastric pain (principal); K85.90 Acute pancreatitis without necrosis or infection, unspecified
CPT/HCPCS: 36415; 82150; 83690